=== PATIENT | male | born 1955 | race Caucasian/White ===

== ENCOUNTER 2021-05-10 05:37 | Observation (INO) ==
[2021-05-10] MEDS ORDERED: Ipratropium/Albuterol Neb 3 ML ONE (05:48)
[2021-05-10] MEDS ORDERED: Ipratropium/Albuterol Neb 3 ML IH ONE ×3 (06:06→10:27)
[2021-05-10 06:30] LABS: Basophils # 0.1 K/mcL (0.0-0.2); Basophils % 0.6 %; Eosinophils # 0.9 K/mcL (0.0-0.6); Eosinophils % 4.4 %; Hematocrit 47.7 % (37.5-50.1); Hemoglobin 15.8 g/dL (12.9-16.9); Immature Granulocytes % 0.4 % (0-4); Lymphocytes # 1.9 K/mcL (0.6-4.6); Lymphocytes % 9.3 %; Mean Corpuscular HGB Conc 33.1 g/dL (31.6-35.5); Mean Corpuscular Hemoglobin 30.7 pg (28.0-33.3); Mean Corpuscular Volume 92.8 fL (83.0-100.0); Mean Platelet Volume 10.8 fL (9.4-12.4); Monocytes # 1.4 K/mcL (0.0-1.3); Monocytes % 6.8 %; Neutrophils # 16.1 K/mcL (1.6-8.9); Platelet Count 293 K/mcL (140-400); Red Blood Count 5.14 M/mcL (4.19-5.50); Red Cell Distribution Width 13.2 % (11.5-14.5); Segmented Neutrophils % 78.5 %; White Blood Count 20.5 K/mcL (4.3-11.1)
[2021-05-10 06:40] LABS: Alanine Aminotransferase 22 Units/L (7-52); Albumin 4.6 g/dL (3.5-5.7); Albumin/Globulin Ratio 1.5 (1.1-2.2); Alkaline Phosphatase 53 Units/L (34-104); Aspartate Amino Transferase 21 Units/L (13-39); BUN/Creatinine Ratio 16 (6-26); Bilirubin,Direct 0.2 mg/dL (0.0-0.2); Bilirubin,Indirect 0.5 mg/dL (0.0-1.0); Bilirubin,Total 0.7 mg/dL (0.3-1.0); Blood Urea Nitrogen 14 mg/dL (8-23); Calcium 9.4 mg/dL (8.6-10.3); Carbon Dioxide 25 mEq/L (23-29); Chloride 105 mEq/L (98-107); Glucose 117 mg/dL (70-105); Osmolality,Calculated 292 (280-300); Potassium 3.9 mEq/L (3.5-5.1); Sodium 140 mEq/L (136-145); Total Protein 7.6 g/dL (6.4-8.9); eGFR For African Americans > 60 (> 60); eGFR For Non-African Americans > 60 (> 60)
[2021-05-10 06:44] LABS: Activated Partial Thrombo Time 31.9 Seconds (26.0-36.0)
[2021-05-10 07:00] LABS: Troponin I < 0.03 ng/mL (< 0.04)
[2021-05-10 07:10] LABS: Adenovirus Not Detected (Not Detect); Bordetella Pertussis Not Detected (Not Detect); Chlamydophila pneumoniae Not Detected (Not Detect); Coronavirus 229E Not Detected (Not Detect); Coronavirus HKU1 Not Detected (Not Detect); Coronavirus NL63 Not Detected (Not Detect); Coronavirus OC43 Not Detected (Not Detect); Human Metapneumovirus Not Detected (Not Detect); Human Rhinovirus/Enterovirus Not Detected (Not Detect); Influenza A Subtype 2009 H1 Not Detected (Not Detect); Influenza B Not Detected (Not Detect); Mycoplasma pneumoniae Not Detected (Not Detect); Parainfluenza Virus 1 Not Detected (Not Detect); Parainfluenza Virus 2 Not Detected (Not Detect); Parainfluenza Virus 3 Not Detected (Not Detect); Parainfluenza Virus 4 Not Detected (Not Detect); Respiratory Syncytial Virus Not Detected (Not Detect); SARS-CoV-2 Not Detected (Not Detect)
[2021-05-10] MEDS ORDERED: methylPREDNISolone 125 MG/2 ML VIAL IVP ONE (10:27)
[2021-05-10] MEDS ORDERED: Ondansetron 4 MG/2 ML VIAL IVP PRN (11:53)
[2021-05-10] MEDS ORDERED: Naloxone 0.4 MG/ML INJ IVP PRN (11:53)
[2021-05-10] MEDS ORDERED: Acetaminophen 325 MG TABLET PO PRN (11:53)
[2021-05-10] MEDS: Ipratropium/Albuterol Neb 3 ML IH SCH ×3 (12:55→20:23)
[2021-05-10] MEDS: levoFLOXacin 750 MG TABLET PO SCH (13:14)
[2021-05-10] MEDS: *HR* Heparin 5,000 UNIT/ML VIAL SQ SCH ×2 (13:14→20:30)
[2021-05-10] MEDS ORDERED: MethylPREDNISolone 40 MG/ML VIAL IVP SCH (16:00)
[2021-05-10] MEDS ORDERED: Cyanocobalamin (B-12) 1,000 MCG/ML VIAL IM SCH (17:30)
[2021-05-10] MEDS: Budesonide/Formoterol 160/4.5 1 PUFF INH IH SCH (20:23)
[2021-05-10] MEDS: MethylPREDNISolone 40 MG/ML VIAL IVP SCH (21:32)
[2021-05-11] MEDS: Ipratropium/Albuterol Neb 3 ML IH SCH ×7 (00:16→23:07)
[2021-05-11 03:15] LABS: Basophils % 0.1 %; Eosinophils % 0.1 %; Hematocrit 43.5 % (37.5-50.1); Hemoglobin 14.3 g/dL (12.9-16.9); Immature Granulocytes % 0.8 % (0-4); Lymphocytes # 0.6 K/mcL (0.6-4.6); Lymphocytes % 4.6 %; Mean Corpuscular HGB Conc 32.9 g/dL (31.6-35.5); Mean Corpuscular Hemoglobin 30.5 pg (28.0-33.3); Mean Corpuscular Volume 92.8 fL (83.0-100.0); Mean Platelet Volume 10.6 fL (9.4-12.4); Monocytes # 0.1 K/mcL (0.0-1.3); Monocytes % 0.7 %; Neutrophils # 13.1 K/mcL (1.6-8.9); Platelet Count 232 K/mcL (140-400); Red Blood Count 4.69 M/mcL (4.19-5.50); Red Cell Distribution Width 13.1 % (11.5-14.5); Segmented Neutrophils % 93.7 %; White Blood Count 13.9 K/mcL (4.3-11.1)
[2021-05-11 03:33] LABS: BUN/Creatinine Ratio 17 (6-26); Blood Urea Nitrogen 14 mg/dL (8-23); Calcium 9.2 mg/dL (8.6-10.3); Carbon Dioxide 22 mEq/L (23-29); Chloride 104 mEq/L (98-107); Glucose 206 mg/dL (70-105); Magnesium 1.9 mg/dL (1.6-2.6); Osmolality,Calculated 288 (280-300); Phosphorous 2.5 mg/dL (2.7-4.5); Potassium 3.8 mEq/L (3.5-5.1); Sodium 136 mEq/L (136-145); eGFR For African Americans > 60 (> 60); eGFR For Non-African Americans > 60 (> 60)
[2021-05-11] MEDS: MethylPREDNISolone 40 MG/ML VIAL IVP SCH ×2 (06:30→17:29)
[2021-05-11] MEDS: *HR* Heparin 5,000 UNIT/ML VIAL SQ SCH ×3 (06:30→21:33)
[2021-05-11] MEDS: Budesonide/Formoterol 160/4.5 1 PUFF INH IH SCH ×2 (07:21→19:43)
[2021-05-11] MEDS: Psyllium 1 PACKET POWD.PACK PO SCH ×3 (08:18→21:29)
[2021-05-11] MEDS: levoFLOXacin 750 MG TABLET PO SCH (08:19)
[2021-05-11] MEDS: Pregabalin 75 MG CAPSULE PO SCH ×2 (10:32→21:28)
[2021-05-11] MEDS: hydroCHLOROthiazide 25 MG TABLET PO SCH (15:03)
[2021-05-12] MEDS: Ipratropium/Albuterol Neb 3 ML IH SCH ×2 (03:14→07:24)
[2021-05-12] MEDS: MethylPREDNISolone 40 MG/ML VIAL IVP SCH (04:38)
[2021-05-12] MEDS: *HR* Heparin 5,000 UNIT/ML VIAL SQ SCH (04:38)
[2021-05-12] MEDS: Budesonide/Formoterol 160/4.5 1 PUFF INH IH SCH (07:24)
[2021-05-12 07:36] VITALS: BP 112/66; PULSE 65; TEMP 97.6; O2SAT 96
[2021-05-12] MEDS: hydroCHLOROthiazide 25 MG TABLET PO SCH (08:06)
[2021-05-12] MEDS: levoFLOXacin 750 MG TABLET PO SCH (08:07)
[2021-05-12] MEDS: Psyllium 1 PACKET POWD.PACK PO SCH (08:07)
[2021-05-12] MEDS: Pregabalin 75 MG CAPSULE PO SCH (08:07)
[2021-05-12] MEDS ORDERED: Metoprolol XL (24 HR) Succ 50 MG TAB.ER.24H PO SCH (09:00)
[2021-05-12] MEDS ORDERED: Fenofibrate 54 MG TABLET PO SCH (09:00)
[2021-05-12] MEDS ORDERED: Aspirin Enteric Coated 81 MG Tablet PO SCH (09:00)
== END 2021-05-12 09:53 | disposition home or self-care (01) ==
LOC: 2ANU 05:37 → EMEROOARM 05:37 → 2ANU 12:38
PROVIDERS: ADMIT Internal Medicine; ATTEND Internal Medicine